=== PATIENT | male | born 1990 | race Caucasian/White ===

== ENCOUNTER 2022-07-12 20:17 | Emergency (ER) | payer SELFPAY ==
[~2022-07-12] VITALS: Ht 172.7 cm; Wt 90.0 kg
[2022-07-12 20:30] VITALS: BP 138/72
[2022-07-13] MEDS ORDERED: ACET-2708 MT (04:01)
[2022-07-13] MEDS ORDERED: IBUP-2028 MT (04:02)
== END 2022-07-13 06:25 | disposition home or self-care (01) ==
LOC: ER 20:17
DX: S00.83XA Contusion of other part of head, initial encounter (principal); S03.2XXA Dislocation of tooth, initial encounter; F10.10 Alcohol abuse, uncomplicated; Y90.9 Presence of alcohol in blood, level not specified; Y04.0XXA Assault by unarmed brawl or fight, initial encounter; Y93.89 Activity, other specified; Y92.488 Other paved roadways as the place of occurrence of the external cause
CPT/HCPCS: 70486; 70490; 71045; 99284